=== PATIENT | female | born 1960 | race Caucasian/White ===

== ENCOUNTER 2020-04-21 13:26 | Outpatient (CLI) | payer OTHER, SELFPAY ==
--- NOTE | ~2020-04-21 | US_ITS ---
EXAMINATION: US breast LT complete HISTORY: Six-month follow-up for probably benign left breast mass TECHNIQUE: Limited left breast ultrasound is performed. COMPARISON: 08/28/2019, 08/14/2018 FINDINGS: There is a 6 mm x 4 mm oval, circumscribed, parallel, hypoechoic mass with central vascular ity at the 3:00 location 8 cm from the nipple which is not significantly changed since the August 26 comparison. There is a 4 mm x 2 mm oval, circumscribed, parallel, hypoechoic mass with no posterio r features or internal vascularity at 4:00 location 4 cm from the nipple. A 2 mm round cyst is noted at the 10:00 location 3 cm from the nipple. IMPRESSION: Left breast masses without significant change since 2018, consistent with benign findings. Routine sc reening mammography is recommended. BI-RADS Category 2: Benign finding(s). Reviewed, dictated and finalized at location A. IMPRESSION: Left breast masses without significant change since 2018, consistent with benig n findings. Routine screening mammography is recommended. BI-RADS Category 2: Benign finding(s).
== END 2020-04-21 13:27 | disposition home or self-care (01) ==
PROVIDERS: PCP Family Medicine; Visit Provider Obstetrics & Gynecology
DX: R92.8 Other abnormal and inconclusive findings on diagnostic imaging of breast (principal)
CPT/HCPCS: 76641

== ENCOUNTER 2021-07-09 02:31 | Day surgery (SDC) | payer OTHER, SELFPAY ==
[2021-06-30 13:57] VITALS: BMI 32.0
--- NOTE | 2021-07-08 14:53 | PM.HPGS ---
History of Present Illness History of Present Illness Consent: Risks, benefits, and alternatives have been discussed and questions answered. Patient agrees to proceed with procedure. Chief complaint: neoplasm screening Z12.11 Narrative: Asya Lundy is a 60 year old female referred for colon cancder screening Review of Systems Review of Systems: All systems reviewed & are unremarkable except as noted in HPI and below PMFSH Past Medical History Medical History Anxiety History of thyroid nodule s/p - left thyroidectomy 07/2017 Restless leg syndrome stable without any medications Seasonal allergies Surgical History Surgical History History of partial thyroidectomy 07/2017 - excision of thyroid mass - benign Hx of tonsillectomy Family History Family History Father Cerebrovascular accident Mother Stomach cancer Social History Social History Smoking status: Never smoker Second hand tobacco smoke exposure: No Alcohol intake: current Drinks per week: 1 Alcohol use details: consumes 1 glass of wine socially Substance use: never Substance use type: does not use Living arrangements: with family Gender identity (if verbalized by the patient): Female Spiritual care concerns: No Meds Home Medications and Allergies Home Medications Medication Instructions Recorded Confirmed Type carbamazepine 200 mg 200 mg PO DAILY #90 tablet 06/03/21 06/30/21 Rx tablet,extended release,12 hr cholecalciferol (vitamin D3) 1,250 1,250 mcg PO WEEKLY #12 cap 06/09/21 06/30/21 Rx mcg (50,000 unit) capsule Allergies Allergy/AdvReac Type Severity Reaction Status Date / Time No Known Allergies Allergy Verified 07/09/21 06:19 Exam Resp: Auscultation: clear to auscultation bilaterally Cardio: Rate: regular rate Rhythm: regular rhythm GI: GI Palp: Yes Soft to palpation and No Tenderness to palpation present (GI) Assessment and Plan Assessment and plan (1) Colon cancer screening: Code(s): Z12.11 - Encounter for screening for malignant neoplasm of colon Status: Acute Assessment and Plan: Colonoscopy with possible biopsy or polypectomy or cautery or injection of substances.
[2021-07-09 06:21] VITALS: BP 123/72; PULSE 87; RESP 18; TEMP 36.3; O2SAT 97
[2021-07-09] MEDS: LACTATED RINGERS 1,000 ML 150 ML IV CONT (06:33)
--- NOTE | 2021-07-09 07:18 | WPDANESEPPF ---
Anes - Initial Pre Proc Eval Procedure: Operation Date: 07/09/21 07:30 Proposed Procedures p Screening Colonoscopy - Shakeel Valero MD Date/Time: 07/09/21 07:18 Surgeon: Shakeel Valero MD Pre Op Diagnosis: neoplasm screening Z12.11 Patient Data Age: 60 Gender: F Height: 1.68 m Weight: 89.4 kg Last Vital Signs Temp 97.4 F L 07/09/21 06:21 Pulse 87 07/09/21 06:21 Resp 18 07/09/21 06:21 BP 123/72 07/09/21 06:21 Pulse Ox 97 07/09/21 06:21 Allergies Allergy/AdvReac Type Severity Reaction Status Date / Time No Known Allergies Allergy Verified 07/09/21 06:19 Home Medications Medication Instructions Recorded Confirmed Type carbamazepine 200 mg 200 mg PO DAILY #90 tablet 06/03/21 06/30/21 Rx tablet,extended release,12 hr cholecalciferol (vitamin D3) 1,250 1,250 mcg PO WEEKLY #12 cap 06/09/21 06/30/21 Rx mcg (50,000 unit) capsule Patient hx anesthesia problems: none Family hx anesthesia problems: none PMFSH Past Medical History Medical History Anxiety History of thyroid nodule s/p - left thyroidectomy 07/2017 Restless leg syndrome stable without any medications Seasonal allergies Surgical History Surgical History History of partial thyroidectomy 07/2017 - excision of thyroid mass - benign Hx of tonsillectomy Family History Family History Father Cerebrovascular accident Mother Stomach cancer Social History Social History Smoking status: Never smoker Second hand tobacco smoke exposure: No Alcohol intake: current Drinks per week: 1 Alcohol use details: consumes 1 glass of wine socially Substance use: never Substance use type: does not use Living arrangements: with family Gender identity (if verbalized by the patient): Female Spiritual care concerns: No Anes - Eval Final PreProcedure Day of Procedure 07/09/21 07:18 Patient weight: obese Heart: regular rate and rhythm Lungs: clear to auscultation Airway: Mallampati scale class II Neurological: alert and oriented Last oral intake: >/= 8 hours ASA classification: II Emergent: no Anesthetic plan: proceed Anesthesia type and monitoring: general GIVS and standard monitoring Informed Consent: The patient's anesthetic plan and its attendant risks and benefits were discussed with the patient/family/POA. Questions were solicited and answers provided to the satisfaction of the patient/family/POA.
[2021-07-09 07:55] VITALS: BP 112/67; PULSE 71; RESP 22; O2SAT 100
[2021-07-09 08:10] VITALS: BP 127/76; PULSE 69; RESP 21; O2SAT 100
[2021-07-09 08:15] VITALS: BP 119/80; PULSE 72; RESP 14; O2SAT 99
== END 2021-07-09 08:39 | disposition home or self-care (01) ==
PROVIDERS: PCP Family Medicine; Visit Provider Internal Medicine Gastroenterology
PROC: 0DJD8ZZ Inspection of Lower Intestinal Tract, Via Natural or Artificial Opening Endoscopic (ICD-10-PCS; CPT 45378; principal; 2021-07-09 07:30)
DX: Z12.11 Encounter for screening for malignant neoplasm of colon (principal); K57.30 Diverticulosis of large intestine without perforation or abscess without bleeding; E89.0 Postprocedural hypothyroidism; G25.81 Restless legs syndrome
CPT/HCPCS: 45378; J2704; J7120

== ENCOUNTER 2021-09-17 17:32 | Outpatient (CLI) | payer OTHER, SELFPAY ==
--- NOTE | ~2021-09-17 | MM_ITS ---
EXAMINATION: MM screening matt BI w enoc HISTORY: Screening mammogram TECHNIQUE: Craniocaudal and mediolateral oblique 3-D tomosynthesis images were obtained and synthetic 2-D images were generated. CAD analysis was submitted and interpreted. COMPARISON: 04/21/2020 left complete breast ultrasound 08/28/2019 diagnostic left mammogram and left complete breast ultrasound 08/16/2019 bilateral screening mammogram diagnostic left mammogram and complete left breast ultrasound 08/08/2018, 08/02/2017 and lateral screening mammogram examinations BREAST PARENCHYMAL COMPOSITION: There are scattered areas of fibroglandular density. FINDINGS: There is no evidence of suspicious mass, calcification, or architectural distortion to sugg est malignancy in either breast. There has been no suspicious interval change. IMPRESSION: 1. No mammographic evidence of malignancy. 2. Recommend routine screening mammography in one year. BI-RADS Category 2: Benign finding(s). Reviewed, dictated and finalized at location A. 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
== END 2021-09-17 17:33 | disposition home or self-care (01) ==
LOC: ANHIMG 17:33
PROVIDERS: PCP Family Medicine; Visit Provider Obstetrics & Gynecology
DX: Z12.31 Encounter for screening mammogram for malignant neoplasm of breast (principal)
CPT/HCPCS: 77063; 77067

== ENCOUNTER 2022-07-15 07:51 | Outpatient (CLI) | payer OTHER, SELFPAY ==
--- NOTE | ~2022-07-15 | MR_ITS ---
EXAMINATION: MR knee RT wo con DATE: 07/15/2022 08:43 INDICATION: Right knee pain TECHNIQUE: Magnetic resonance imaging (MRI) of the right knee was performed without intravenous contr ast. Sequences included coronal PD-weighted FSE, coronal PD-weighted FS FSE, sagittal T2-weighted FS E, sagittal PD-weighted FS FSE and axial PD weighted fat saturated FSE. COMPARISON: None. FINDINGS: Medial compartment: Complex tear at the posterior horn of the medial meniscus which includes both a longitudinal horizont al component extending to the superior articular surface as well as a small radial component involvin g the inner third of the posterior horn. Articular cartilage is normal. Lateral compartment: Lateral meniscus is normal. Articular cartilage is normal. Patellofemoral compartment: Partial-thickness patellar cartilage loss centered along the apical ridge but generally smooth chondr al surface. Small region of chondral swelling and shallow chondral fissuring at the lateral margin of the lateral patellar facet. Chondral ulceration and deep fissuring with mild subarticular cystlike c hange at the central aspect of the trochlear groove. Ligaments and tendons: Anterior and posterior cruciate ligaments are normal. The medial collateral ligament and fibular citlali ateral ligament complex are normal. The extensor mechanism is normal. The visualized medial and later al hamstring tendons as well as the iliotibial band are normal. Fluid: Physiologic amount of fluid in the joint space. No loose osteochondral bodies identified. Small Romeo 's cyst. Osseous/other: 12 x 9 x 7 mm globular T2 hyperintense lesion with cluster of grape like appearance at the lateral fe moral condyle with appearance consistent with and statistically most likely to represent an enchondro ma. Otherwise normal marrow signal. No fracture or pathologic marrow replacing process. There is pablo a of the superficial suprapatellar fat pad which can be seen with fat pad impingement syndrome. IMPRESSION: 1. Complex tear at the posterior horn of the medial meniscus. 2. 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 3. Edema at the superficial suprapatellar fat pad which can be seen with fat pad impingement syndrome . 4. 12 mm T2 hyperintense lesion at the lateral femoral condyle most likely representing an enchondrom a but would recommend correlation with plain radiographs. 5. Small Romeo's cyst. Reviewed, dictated and finalized at location A. IMPRESSION: 1. Complex tear at the posterior horn of the medial meniscus. 2. Mild patellofemoral osteoarthritis with moderate grade patellar and high-gra de trochlear chondromalacia. 3. Edema at the superficial suprapatellar fat pad which can be seen with fat pa d impingement syndrome. 4. 12 mm T2 hyperintense lesion at the lateral femoral condyle most likely repr esenting an enchondroma but would recommend correlation with plain radiographs. 5. Small Romeo's cyst.
== END 2022-07-15 07:52 | disposition home or self-care (01) ==
PROVIDERS: PCP Family Medicine; Visit Provider Nurse Practitioner
DX: M71.21 Synovial cyst of popliteal space [Baker], right knee (principal); M17.11 Unilateral primary osteoarthritis, right knee; S83.231A Complex tear of medial meniscus, current injury, right knee, initial encounter; X58.XXXA Exposure to other specified factors, initial encounter
CPT/HCPCS: 73721

== ENCOUNTER 2022-08-20 01:03 | Day surgery (SDC) | payer OTHER, SELFPAY ==
[2022-08-10 09:41] VITALS: BMI 32.3
--- NOTE | 2022-08-10 09:50 | PC.NURSE ---
Report to the Outpatient Waiting Room, entrance under the green pavilion located off [facility], at time __07:00AM__ on date __08/20/22 . OR Time: __09:00AM . Time changes happen often and if your time is changed the preop area will call you the afternoon before. - You and your visitor will be asked to self-screen and do not enter if you have any COVID symptoms. - Only one visitor and NO children visitors are allowed at this time. - The patient visitor is requested to leave or wait in car when not with patient due to restrictions. - A mask is required within the hospital. Patients may have clear liquids (water, carbonated beverages, clear teas, apple juice) until 3 hours prior to surgery with a maximum of 20 ounces. - No food from midnight until time of surgery -NOTHING TO DRINK AFTER 6:00AM Take the following medications with a SIP of water the morning of surgery: CARBAMAZEPINE, SERTRALINE Medications to discontinue per physician VITAMIN D Date to take last mssd____[id number] Please no make-up, nail italian, hairspray, perfume, deodorant, or body powder the day of surgery. No jewelry (including any body piercings) or valuables the day of surgery, leave them at home. Please take a shower or bath the night before, or the morning of, surgery with an antibacterial soap. Wear comfortable, loose fitting clothing. - Jewelry must be removed prior to entering the operating room. Rings and piercings that are not removed may be cut off. - The hospital will not accept responsibility for valuables. - Please leave all valuables, including medications, at home the day of surgery. If you are going home after surgery, a licensed pick up driver must drive you home. - NO public transportation without another adult. - We recommend that an adult stay with you for 24 hours following discharge. - We also recommend that you do not drive, make important decision, drink alcoholic beverages, or take any drugs that were not prescribed by your health care provider for at least 24 hours after your discharge time. Follow any additional instructions given to you from your surgeon. If you or anyone in your household have experienced Covid symptoms in the past week, please notify your surgeon or the nurse liaison at the phone number below for possible testing. Telephone instructions given to __PATIENT___and asked if any additional questions and then verbalized understanding. Patient advised to call surgeon office or pre surgery nurse liaison [phone] if any additional questions.
[2022-08-20] VITALS (12 sets, daily range): BP systolic 115–147; BP diastolic 60–86; PULSE 80–102; RESP 13–16; TEMP 36.1–37; O2SAT 95–98
--- NOTE | 2022-08-20 07:15 | WPDHPUPDATE1 ---
History and Physical Update Update Date/Time: 08/20/22 07:15 History and Physical has been reviewed, including an updated exam of the patient. There are NO changes in the patient's condition. Risks, benefits, and alternatives have been discussed and questions answered. Patient agrees to proceed with procedure.
[2022-08-20] MEDS: LACTATED RINGERS 1,000 ML 30 ML IV CONT (08:00)
[2022-08-20] MEDS: ACETAMINOPHEN 500 MG TABLET 1000 MG PO (08:06)
[2022-08-20] MEDS: CELECOXIB 200 MG CAPSULE PO (08:06)
--- NOTE | 2022-08-20 08:38 | WPDANESEPPF ---
Anes - Initial Pre Proc Eval Procedure: Operation Date: 08/20/22 09:00 Proposed Procedures p Right Knee Arthroscopy - Jose Michaels MD Date/Time: 08/20/22 08:38 Surgeon: Jose Michaesl MD Pre Op Diagnosis: Rt Medial Meniscus Tear Patient Data Age: 61 Gender: F Height: 1.68 m Weight: 92.8 kg Last Vital Signs Temp 36.1 C L 08/20/22 07:19 Pulse 95 08/20/22 07:19 Resp 16 08/20/22 07:19 BP 128/82 08/20/22 07:19 Pulse Ox 98 08/20/22 07:19 O2 Del Method Room Air 08/20/22 07:19 Allergies Allergy/AdvReac Type Severity Reaction Status Date / Time No Known Allergies Allergy Verified 08/20/22 07:37 Home Medications Medication Instructions Recorded Confirmed Type carbamazepine 200 mg 200 mg PO DAILY #90 tabs 03/29/22 08/20/22 Rx tablet,extended release,12 hr cyclobenzaprine 10 mg tablet 10 mg PO .at bedtime #30 tabs 07/02/22 08/20/22 Rx naproxen 500 mg tablet 500 mg PO BID PRN pain #60 tabs 07/02/22 08/10/22 Rx sertraline 50 mg tablet (Zoloft) 50 mg PO DAILY #90 tabs 07/13/22 08/20/22 Rx cholecalciferol (vitamin D3) 50 50 mcg PO DAILY 08/10/22 08/20/22 History mcg (2,000 unit) tablet (Vitamin D3) chlorhexidine gluconate 4 % 1 applic topical ONCE #237 mL 08/13/22 08/20/22 Rx topical liquid (Hibiclens) Patient hx anesthesia problems: none Family hx anesthesia problems: none Results Review: All pre-operative results and documents have been reviewed as part of the pre-operative evaluation. [facility] Past Medical History Medical History Anxiety Dyslipidemia History of thyroid nodule s/p - left thyroidectomy 07/2017 Restless leg syndrome Seasonal allergies Vitamin D deficiency Surgical History Surgical History History of partial thyroidectomy 07/2017 - excision of thyroid mass - benign Hx of tonsillectomy (~1965) Family History Family History Father Cerebrovascular accident Mother Stomach cancer Social History Social History Smoking status: Never smoker Second hand tobacco smoke exposure: No Alcohol intake: never Drinks per week: 1 Alcohol use details: consumes 1 glass of wine socially Substance use: never Substance use type: does not use Living arrangements: with family Gender identity (if verbalized by the patient): Female Spiritual care concerns: No Anes - Eval Final PreProcedure Day of Procedure 08/20/22 08:38 Patient weight: obese Heart: regular rate and rhythm Lungs: clear to auscultation Airway: Mallampati scale class II Neurological: alert and oriented Last oral intake: >/= 8 hours ASA classification: III Emergent: no Anesthetic plan: proceed Anesthesia type and monitoring: general LMA and standard monitoring Results Review: All pre-operative results and documents have been reviewed as part of the pre-operative evaluation. Informed Consent: The patient's anesthetic plan and its attendant risks and benefits were discussed with the patient/family/POA. Questions were solicited and answers provided to the satisfaction of the patient/family/POA.
[2022-08-20] MEDS: ceFAZolin 2 GM/D5W 50 ML 2 GM/50 ML BAG IVPB (08:54)
[2022-08-20] MEDS: BUPIVACAINE HCL 0.5% PF 30 ML VIAL INFILTRATE (09:32)
--- NOTE | 2022-08-20 10:49 | W.PM.PROC2 ---
Procedure Note - Detailed Date of Procedure 08/20/22 Pre-op Diagnosis Rt Medial Meniscus Tear Post-op Diagnosis Same Procedure Performed RIGHT KNEE SCOPE Surgeon Jose Michaels MD Anesthesia General Description of Procedure PATIENT WAS TAKEN TO THE OR. THE RIGHT LEG WAS PREPPED AND DRAPED STERILE. TROCARS WERE PLACED IN THE USUAL FASHION. CAMERA WAS INTRODUCED. THERE WAS CHONDROMALACIA TO THE PATELLA FEMORAL JOINT. THERE WAS A LOT OF SYNOVITIS IN ALL COMPARTMENTS. THE MEDIAL COMPARTMENT SHOWED CHONDROMALACIA TO THE MEDIAL FEMORAL CONDYLE. A SHAVER WAS USED TO PREFORM A CHONDROPLASTY. THERE WAS A COMPLEX MEDIAL MENISCUS TEAR. THE TEAR WAS RESECTED WITH A BITER AND A SHAVER DOWN TO A SMOOTH BASE. ABOUT 30% OF THE MENISCUS WAS REMOVED. THE ACL WAS INTACT. THE LATERAL MENISCUS WAS NOT TORN. THE LAT COMPARTMENT HAD MINIMAL CHONDROMALACIA. A SYNOVECTOMY WAS PREFORMED. THE PATELLO FEMORAL JOINT UNDERWENT CHONDROPLASTY. THERE WAS GRADE 2 AND GRADE 3 CHONDROMALACIA IN PART OF THE TROCHLEA AND PART OF THE PATELLA. SYNOVECTOMY WAS PREFORMED IN THE SUPERIOR MEDIAL COMPARTMENT. THE WOUNDS WERE APPROXIMATED WITH 4.0 NYLON. STERILE DRESSING WAS APPLIED. PATIENT WAS EXTUBATED. Estimated Blood Loss -5.0 Complications No immediate complications Condition Stable Disposition PACU
--- NOTE | 2022-08-20 12:22 | SUR.PHASEII ---
PATIENT STILL QUITE DROWSY. 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 WILL TRANSFER TO RECLINER WHEN SLIGHTLY MORE AWAKE.
[2022-08-20] MEDS: ONDANSETRON INJ 4 MG/2 ML VIAL IV PUSH (13:00)
--- NOTE | 2022-08-20 13:16 | SUR.PHASEII ---
ATTEMPTED TO ASSIST PATIENT TO RECLINER BUT STILL TOO SLEEPY.
[2022-08-20] MEDS: SCOPOLAMINE 1.5 MG PATCH TRANSDERM (15:14)
[2022-08-20] MEDS: ONDANSETRON HCL ODT 4 MG TABLET PO (15:14)
--- NOTE | 2022-08-20 15:21 | SUR.PHASEII ---
1510 DR. SUMMERS CALLED RE: PATIENT'S NAUSEA/VOMITING. ORDERED SCOPALAMINE PATCH AND ZOFRAN ODT SUBLINGUAL.
== END 2022-08-20 15:22 | disposition home or self-care (01) ==
PROVIDERS: PCP Family Medicine; Visit Provider Orthopaedic Surgery
PROC: (CPT 29870; principal; 2022-08-20 09:00)
DX: S83.231A Complex tear of medial meniscus, current injury, right knee, initial encounter (principal); X50.9XXA Other and unspecified overexertion or strenuous movements or postures, initial encounter; M22.41 Chondromalacia patellae, right knee; M65.861 Other synovitis and tenosynovitis, right lower leg; F41.9 Anxiety disorder, unspecified; E89.0 Postprocedural hypothyroidism; E55.9 Vitamin D deficiency, unspecified; G25.81 Restless legs syndrome
CPT/HCPCS: 29881; A9270; J0690; J1100; J1885; J2250; J2405; J2704; J3010; J7120

== ENCOUNTER 2022-12-02 17:04 | Outpatient (CLI) | payer OTHER, SELFPAY ==
--- NOTE | ~2022-12-02 | MM_ITS ---
EXAMINATION: MM screening matt BI w enoc HISTORY: Screening TECHNIQUE: Craniocaudal and mediolateral oblique 3-D tomosynthesis images were obtained and synthetic 2-D images were generated. CAD analysis was submitted and interpreted. COMPARISON: Comparison to multiple prior studies sequentially, with oldest reviewed study dated 08/02. BREAST PARENCHYMAL COMPOSITION: There are scattered areas of fibroglandular density. FINDINGS: There is no evidence of suspicious mass, calcification, or architectural distortion to sugg est malignancy in either breast. There has been no suspicious interval change. IMPRESSION: 1. No mammographic evidence of malignancy. 2. Recommend routine screening mammography in one year. BI-RADS Category 1: Negative Reviewed, dictated and finalized at location A. 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
== END 2022-12-02 17:05 | disposition home or self-care (01) ==
PROVIDERS: PCP Family Medicine; Visit Provider Obstetrics & Gynecology
DX: Z12.31 Encounter for screening mammogram for malignant neoplasm of breast (principal)
CPT/HCPCS: 77063; 77067

== ENCOUNTER 2022-12-20 08:00 | Outpatient (RCR) | payer OTHER, SELFPAY ==
--- NOTE | 2022-10-05 15:20 | PTOPEVAL1 ---
Assessment and note entered by Candice Garcia DPT Evaluation Information Assessment Status Evaluation Subjective Information Pt had R knee scope 08/20/22 for a meniscus tear. Had fluid drained off her knee and cortisone shots 2 weeks ago. Reports difficulty straightening her knee. Has been doing exercises from Dr. Michaels. Highest pain 8/10 and lowest 1/10. Pain increases with walking but sometimes randomly. Pain decreases with pain meds and ice. Pt sits at work and reports minimal limitations. Is not picking up her grandchildren currently but was able to previously. Reports fear going down stairs. Has 2 levels and a basement at home. Would normally be exercising and doing yard work but is not currently. Returns to MD in December. Reported Pain Level Pain Score 3: Self Report Assessment PT Clinical Summary The patient is presenting to skilled therapy s/p R knee arthroscopy on 08/20/22. She presents with limitations in knee flexion and extension, decreased strength, and gait impairments which are contributing to her pain and difficulty performing her typical activities. She will benefit from therapy to address these impairments in order to reduce pain and return to prior level of function. Plan of Care Interventions Electrical Stimulation,Gait Training,Hot Pack/Cold Pack,Manual Therapy,Neuro Re-education,Patient/ Caregiver Education,Therapeutic Activities, Therapeutic Exercise,Self-Care/Home Management PT Services Indicated Yes Treatment Frequency and 2 times a week for 4 weeks Duration These treatments will address the objective and functional deficits as defined above. The patient will be advanced safely and appropriately in order for the patient to progress towards his/her prior level of function. Additional exercises will be introduced and as well as a comprehensive home exercise program upon discharge, if needed, ?to ensure carryover of functional gains achieved in the clinic. This treatment plan has been reviewed and agreement upon by the patient.
--- NOTE | 2022-10-28 15:38 | PTOPPROG ---
Assessment and note entered by Candice Garcia DPT Evaluation Information Assessment Status Progress Subjective Information Reports improvements since starting therapy. Highest pain 6/10 and lowest 2-3/10. Has been able to bend it better and made it down a full flight of stairs. Returns to MD in December. Feels continued stiffness and some limitations with walking and bending over, other activities that require knee movement. Assessment PT Clinical Summary The patient has made some progress in therapy and reports overall decreased pain and improved function. She demonstrates improved range of motion, strength, 5 time sit to stand test, 2 minute walk distance, and stair navigation. She continues to lack full strength and range of motion and will highly benefit from continued therapy to further address her impairments and return to prior level of function. Plan of Care Interventions Electrical Stimulation,Gait Training,Hot Pack/Cold Pack,Manual Therapy,Neuro Re-education,Patient/ Caregiver Education,Therapeutic Activities, Therapeutic Exercise,Self-Care/Home Management PT Services Indicated Yes Treatment Frequency and 2 times a week for 4 weeks Duration These treatments will address the objective and functional deficits as defined above. The patient will be advanced safely and appropriately in order for the patient to progress towards his/her prior level of function. Additional exercises will be introduced and as well as a comprehensive home exercise program upon discharge, if needed, ?to ensure carryover of functional gains achieved in the clinic. This treatment plan has been reviewed and agreement upon by the patient.
--- NOTE | 2022-11-25 11:55 | PTOPPROG ---
Assessment and note entered by Mike Ignacio, PT, DPT Evaluation Information Assessment Status Progress Diagnosis R knee scope Subjective Information Pt states her knee does not really hurt anymore. She states she has been really focusing on her walking. She states her heel pain and Achilles pain has failed up making this more difficult. Assessment PT Clinical Summary Asya presents to therapy today for her progress report following 13 visits of skilled therapy to treat her R knee scope. She has improved her active and passive knee ROM but continues to lack terminal knee extension ROM. Secondary to this, she continues to have moderate deviations during ambulation with decreased walking tolerance. She also is still lacking terminal quad strength during a long arc quad. She has a palpable increase in soft tissue density in her posterior knee fossa that is possibly limiting her as well. She will highly benefit from continued therapy to further address her impairments and return to prior level of function. Plan of Care Interventions Electrical Stimulation,Gait Training,Hot Pack/Cold Pack,Manual Therapy,Neuro Re-education,Patient/ Caregiver Educati,Therapeutic Activities, Therapeutic Exercise,Self-Care/Home Management PT Services Indicated Yes Treatment Frequency and 1x/wk for 4 wks Duration These treatments will address the objective and functional deficits as defined above. The patient will be advanced safely and appropriately in order for the patient to progress towards his/her prior level of function. Additional exercises will be introduced and as well as a comprehensive home exercise program upon discharge, if needed, ?to ensure carryover of functional gains achieved in the clinic. This treatment plan has been reviewed and agreement upon by the patient.
--- NOTE | 2022-12-20 09:55 | PTOPPROG ---
Assessment and note entered by Mike Ignacio, PT, DPT Evaluation Information Assessment Status Progress Diagnosis R knee scope Subjective Information Pt states she feels like things are going pretty well. She feels like her knee is mostly straight. She reports no limitations with very little pain. Assessment PT Clinical Summary Asya presents to therapy today for her progress report following 17 visits of skilled therapy to treat her R knee scope. Today she continues to have decreased terminal knee extension actively and passively, she is lacking - 6 deg and -2 deg respectively. She continues to use her glutes to compensate for her quads during LE exercise, reinforcement was given again to limit these substitutions. She continues to ambulate with lack of terminal knee extension. Her HEP was progress and consolidated and she was instructed to continue with these exercises until her follow up with her referring provider. She will follow up with the clinic after her appointment with her provider in 2-3 weeks. Plan of Care Interventions Electrical Stimulation,Gait Training,Hot Pack/Cold Pack,Manual Therapy,Neuro Re-education,Patient/ Caregiver Educati,Therapeutic Activities, Therapeutic Exercise,Self-Care/Home Management PT Services Indicated Yes Treatment Frequency and in 1 month Duration These treatments will address the objective and functional deficits as defined above. The patient will be advanced safely and appropriately in order for the patient to progress towards his/her prior level of function. Additional exercises will be introduced and as well as a comprehensive home exercise program upon discharge, if needed, ?to ensure carryover of functional gains achieved in the clinic. This treatment plan has been reviewed and agreement upon by the patient.
--- NOTE | 2022-12-31 13:07 | PCPTNOTE ---
This treatment is being continued on visit number [id number]. Please see documentation on both accounts to view progress. Completed interventions, outcomes, and problems have been marked as Inactive to facilitate the copying of the Care plan routine for recurring accounts.
== END 2022-12-30 09:31 | disposition home or self-care (01) ==
LOC: ANHGOSHPT 08:00
PROVIDERS: PCP Family Medicine; Visit Provider Orthopaedic Surgery
DX: Z48.89 Encounter for other specified surgical aftercare (principal); M17.11 Unilateral primary osteoarthritis, right knee
CPT/HCPCS: 97110; 97112; 97140; 97161; 97530

== ENCOUNTER 2023-01-07 08:00 | Outpatient (RCR) | payer OTHER, SELFPAY ==
--- NOTE | 2022-12-31 13:07 | PCPTNOTE ---
The treatment documented on this account is a continuation of the treatment documented on visit number [id number]. Please see documentation on both accounts to view progress. The Plan of Care has been transitioned and updated within the new V#. I have addressed and agree with the discipline specific Problems, Interventions, and Goals for the current certification period. Completed interventions, outcomes, and problems have been marked as Inactive to facilitate the copying of the Care plan routine for recurring accounts.
--- NOTE | 2023-01-07 08:50 | PTOPDC ---
Assessment and note entered by Mike Ignacio, PT, DPT Evaluation Information Assessment Status Discharge Diagnosis R knee scope Onset aug 2022 Subjective Information Pt states she is still doing about the same. She followed up with her orthopedic doctor who she reports, states her pain is d/t arthritis and residual swelling. She is scheduled for a cortisone injection. She has been riding her bike 15 mins and has been diligent with her exercises when her pain is manageable. Reported Pain Level Pain Score 2: Self Report Assessment PT Clinical Summary Asya presents to therapy today for her progress report following 17 visits of skilled therapy and a 3 month long participation in her HEP. Today she demonstrates no improvements in her ROM or strength compared to her last visit. She states she is still limited by pain. She will be discharged at this time d/t poor therapy progress with instructions to follow up with her referring provider to discuss other treatment options. Plan of Care PT Services Indicated No Treatment Frequency and discharge Duration
== END 2023-01-07 09:43 | disposition home or self-care (01) ==
LOC: ANHGOSHPT 08:00
PROVIDERS: PCP Family Medicine; Visit Provider Orthopaedic Surgery
DX: M17.11 Unilateral primary osteoarthritis, right knee (principal)
CPT/HCPCS: 97110; 97530

== ENCOUNTER 2023-08-12 16:08 | Emergency (ER) | payer OTHER, SELFPAY ==
[2023-08-12 16:16] VITALS: BP 139/84; PULSE 75; RESP 16; TEMP 36.9; O2SAT 96
--- NOTE | 2023-08-12 16:50 | ED.URI ---
HPI - URI/Sore Throat General Chief Complaint: Upper Respiratory Infection Stated Complaint: CONGESTION Time Seen by Provider: 08/12/23 16:33 Source: patient and RN notes reviewed Mode of arrival: ambulatory Limitations: no limitations History of Present Illness HPI Narrative: Patient presents today with a 10 day history of hoarse cough, intermittent shortness of breath with exertion. She has also developed hoarse voice as well as some nasal congestion and sinus pressure today. She has been taking Tylenol cold and flu without relief. Denies history of asthma or COPD. She is a nonsmoker. Reports multiple sick contacts with her grandkids. Related Data Home Medications Medication Instructions Recorded Confirmed cholecalciferol (vitamin D3) 50 50 mcg PO DAILY 08/10/22 08/12/23 mcg (2,000 unit) tablet (Vitamin D3) Allergies Allergy/AdvReac Type Severity Reaction Status Date / Time No Known Allergies Allergy Verified 08/12/23 16:20 Review of Systems Review of Systems: CONSTITUTIONAL: Denies body aches, fever, chills, or sweats. EYES: Denies visual changes, redness, or discharge. ENT: Denies rhinorrhea, sore throat, or otalgia.+ hoarse voice, nasal congestion CARDIOVASCULAR: Denies chest pain, palpitations, or edema. RESPIRATORY: + cough, shortness of GASTROINTESTINAL: Denies abdominal pain, nausea, vomiting, or diarrhea. GENITOURINARY: Denies dysuria or hematuria. SKIN: Denies rash, itching, or wounds. MUSCULOSKELETAL: Denies back pain, joint pain, or myalgia. NEUROLOGIC: Denies headache, numbness, tingling, or weakness. PSYCH: Denies depression or anxiety. [facility] Past Medical History Medical History Anxiety Dyslipidemia History of thyroid nodule s/p - left thyroidectomy 07/2017 Restless leg syndrome Seasonal allergies Vitamin D deficiency Surgical History Surgical History History of partial thyroidectomy 07/2017 - excision of thyroid mass - benign Hx of tonsillectomy (~1965) Family History Family History Father Cerebrovascular accident Mother Stomach cancer Other Depression Social History Social History Smoking status: Never smoker Second hand tobacco smoke exposure: No Alcohol intake: never Drinks per week: 1 Alcohol use details: consumes 1 glass of wine socially Substance use: never Substance use type: does not use Lack of Transportation: No Lack of Food: Never True Current Housing: I Have Housing Concerned About Future Housing: No Difficulty Paying Gas/Electric Bills: No Difficulty Paying for Meds: No Currently Unemployed: No Education: High School Diploma/GED Living arrangements: with family Occupation/Education: occupation Gender identity (if verbalized by the patient): Female Spiritual care concerns: No Comments At time of signature, I have reviewed and agree with nursing past medical, surgical, social and family history unless otherwise noted. Please see nursing chart for further information. There is no relevant family history pertinent to the presenting complaint Exam Narrative: GENERAL: Well-appearing, well-nourished, and in no acute distress. HEAD: Normocephalic, atraumatic. EYES: EOMI. No redness or drainage. Conjunctivae normal. ENT: Mucous membranes pink and moist. TMs normal bilaterally. Throat normal. Uvula midline.+ hoarse voice, mild congestion NECK: Normal AROM. Supple. No lymphadenopathy. CHEST: No respiratory distress. Inspiratory and expiratory wheeze in the left upper lobe, otherwise clear. HEART: Regular rate and rhythm. No murmur appreciated. Normal peripheral pulses. EXTREMITIES: Normal range of motion. No edema. SKIN: Warm, dry, no rash. Capillary refill normal
== END 2023-08-12 16:57 | disposition home or self-care (01) ==
PROVIDERS: Emergency Provider Nurse Practitioner; PCP Family Medicine
DX: J40 Bronchitis, not specified as acute or chronic (principal); J06.9 Acute upper respiratory infection, unspecified; E78.5 Hyperlipidemia, unspecified
CPT/HCPCS: 99213; G0463

== ENCOUNTER 2023-08-20 13:31 | Emergency (ER) | payer OTHER, SELFPAY ==
--- NOTE | ~2023-08-20 | XR_ITS ---
EXAMINATION: XR chest 2V DATE: 08/20/2023 14:18 INDICATION: Nonproductive cough TECHNIQUE: frontal and lateral views of the chest were obtained. COMPARISON: None FINDINGS: Curvilinear discoid atelectasis anterior lung base on the lateral projection, likely the lingula. No other airspace opacities, pulmonary edema, pleural effusion or pneumothorax. The cardiomediastinal si lhouette is normal. Mild thoracic spondylosis. IMPRESSION: 1. Mild lingular atelectasis. Reviewed, dictated and finalized at location A.
[2023-08-20 13:41] VITALS: BP 128/62; PULSE 102; RESP 20; TEMP 36.3; O2SAT 97
--- NOTE | 2023-08-20 13:53 | ED.URI ---
HPI - URI/Sore Throat General Chief Complaint: Upper Respiratory Infection Stated Complaint: Respiratory Infection Time Seen by Provider: 08/20/23 13:55 Source: patient, RN notes reviewed and old records reviewed Mode of arrival: ambulatory Limitations: no limitations History of Present Illness HPI Narrative: 62-year-old female returns to the [facility] after completing prednisone and doxycycline for an upper respiratory infection. Seen on 08/12/23, per record had symptoms for 10 days. States that she is not better still having a cough and sinus pressure. Has not taken any exno-rqr-ekrropt products just finished her steroids, cough medicine and antibiotic Has not followed up with PCM Onset (ago): day(s) (18) Treatments prior to arrival: antibiotics Related Data Home Medications Medication Instructions Recorded Confirmed cholecalciferol (vitamin D3) 50 50 mcg PO DAILY 08/10/22 08/20/23 mcg (2,000 unit) tablet (Vitamin D3) Allergies Allergy/AdvReac Type Severity Reaction Status Date / Time No Known Allergies Allergy Verified 08/12/23 16:20 Review of Systems Review of Systems: All systems reviewed & are unremarkable except as noted in HPI and below Constitutional: Constitutional: Reports no additional constitutional complaints Eyes: Eyes: Reports no additional eye complaints ENT: Reports as per HPI Cardiovascular: Cardiovascular: Reports no additional cardiovascular complaints, Denies chest pain and Denies dyspnea Respiratory: Respiratory: Reports as per HPI, Denies chest congestion, Reports cough and Denies dyspnea Gastrointestinal: Gastrointestinal: Reports no additional gastrointestinal complaints, Denies abdominal pain, Denies nausea and Denies vomiting Musculoskeletal: Musculoskeletal: Reports no additional musculoskeletal complaints Integumentary/Breasts: Skin/Breast: Reports system reviewed and no additional complaints, except as docu Neurologic: Reports system reviewed and no additional complaints, except as documented Psychiatric: Psychiatric: Reports no additional psychiatric complaints Allergic/Immunologic: Allergic/Immunologic: Reports no additional allergic/immunologic complaints PMFSH Past Medical History Medical History Anxiety Dyslipidemia History of thyroid nodule s/p - left thyroidectomy 07/2017 Restless leg syndrome Seasonal allergies Vitamin D deficiency Surgical History Surgical History History of partial thyroidectomy 07/2017 - excision of thyroid mass - benign Hx of tonsillectomy (~1965) Family History Family History Father Cerebrovascular accident Mother Stomach cancer Other Depression Social History Social History Smoking status: Never smoker Second hand tobacco smoke exposure: No Alcohol intake: never Drinks per week: 1 Alcohol use details: consumes 1 glass of wine socially Substance use: never Substance use type: does not use Lack of Transportation: No Lack of Food: Never True Current Housing: I Have Housing Concerned About Future Housing: No Difficulty Paying Gas/Electric Bills: No Difficulty Paying for Meds: No Currently Unemployed: No Education: High School Diploma/GED Living arrangements: with family Occupation/Education: occupation Gender identity (if verbalized by the patient): Female Spiritual care concerns: No Comments At the time of my signature, I reviewed and agree with the nursing past medical, surgical, social, and family history. There is no relevant family history pertinent to the patient complaint. Exam Const: General: cooperative, healthy appearing, comfortable, no acute distress, well developed, alert and well nourished Nutritional Appearance: well nourished Orientation
--- NOTE | 2023-08-20 14:40 | PC.NURSE ---
inspirometer sent home with patient.
== END 2023-08-20 14:37 | disposition home or self-care (01) ==
PROVIDERS: Emergency Provider Nurse Practitioner; PCP Family Medicine
DX: J40 Bronchitis, not specified as acute or chronic (principal); J98.11 Atelectasis; E78.5 Hyperlipidemia, unspecified; G25.81 Restless legs syndrome; E55.9 Vitamin D deficiency, unspecified; F41.9 Anxiety disorder, unspecified; Z90.89 Acquired absence of other organs
CPT/HCPCS: 71046; 99213; G0463

== ENCOUNTER 2023-11-05 10:14 | Emergency (ER) | payer OTHER, SELFPAY ==
--- NOTE | 2023-11-05 10:22 | ED.EYEPROB ---
HPI - Eye Problem General Chief complaint: Eye Problems Stated complaint: pink eye Time Seen by Provider: 11/05/23 10:40 Source: patient Mode of arrival: ambulatory Limitations: no limitations History of Present Illness HPI Narrative: Asya is a 62-year-old female patient presenting to the clinic today with complaints of bilateral red and irritated eyes. She reports that there has been green/yellow drainage coming from her eyes. States that her eyes were matted shut this morning. Has a gritty sensation in her eyes. No known exposure to anyone with conjunctivitis. Denies any eye pain or visual changes. Does report a runny nose and cough. Related Data Home Medications Medication Instructions Recorded Confirmed cholecalciferol (vitamin D3) 50 50 mcg PO DAILY 08/10/22 11/05/23 mcg (2,000 unit) tablet (Vitamin D3) Allergies Allergy/AdvReac Type Severity Reaction Status Date / Time No Known Allergies Allergy Verified 11/05/23 10:35 Review of Systems Review of Systems: Pertinent positives per HPI. Patient denies any fever, chills, rash, headache, visual changes, dizziness, cough, runny nose, sore throat, shortness of breath, chest pain, palpitations, nausea, vomiting, diarrhea, constipation, abdominal pain, or any urinary issues. [facility] Past Medical History Medical History Anxiety Dyslipidemia History of thyroid nodule s/p - left thyroidectomy 07/2017 Restless leg syndrome Seasonal allergies Vitamin D deficiency Surgical History Surgical History History of partial thyroidectomy 07/2017 - excision of thyroid mass - benign Hx of tonsillectomy (~1965) Family History Family History Father Cerebrovascular accident Mother Stomach cancer Other Depression Social History Social History Smoking status: Never smoker Second hand tobacco smoke exposure: No Alcohol intake: never Drinks per week: 1 Alcohol use details: consumes 1 glass of wine socially Substance use: never Substance use type: does not use Lack of Transportation: No Lack of Food: Never True Current Housing: I Have Housing Concerned About Future Housing: No Difficulty Paying Gas/Electric Bills: No Difficulty Paying for Meds: No Currently Unemployed: No Education: High School Diploma/GED Living arrangements: with family Occupation/Education: occupation Gender identity (if verbalized by the patient): Female Spiritual care concerns: No Comments At the time of my signature, I reviewed and agree with the nursing past medical, surgical, social, and family history. There is no relevant family history pertinent to the patient complaint. Exam Narrative: General: Well-developed, well nourished, in no apparent distress Head: Normocephalic, atraumatic Eyes: Pupils equally round and reactive to light bilaterally, EOM intact, bilateral sclera and conjunctive injected with yellow mucopurulent discharge and bilateral lid swelling, Ears: TMs intact and clear, ear canals clear, no drainage, grossly hearing normal. Nose: Nares patent, clear discharge, no inflammation, no sinus tenderness. Mouth: Oropharynx without lesions or masses, good dentition, MMM. Neck: Supple, trachea midline, no enlargement of anterior or posterior cervical nodes, no thyroid masses or goiter palpable. Cardio: Regular rate and rhythm, s1 and s2 normal, no murmur appreciated. Resp: Clear to auscultation bilaterally anteriorly and posteriorly, no rhonchi, rales, wheezing or rubs Course Course Emergency Course: Portions of this record may have been created with voice recognition software. Level of Care: Express Care Visit Vital Signs Vital signs: Vital signs reviewed MDM - Eye Problem
[2023-11-05 10:35] VITALS: BP 142/84; PULSE 109; RESP 16; TEMP 36.6; O2SAT 99
== END 2023-11-05 10:41 | disposition home or self-care (01) ==
PROVIDERS: Emergency Provider Nurse Practitioner Family; PCP Family Medicine
DX: H10.9 Unspecified conjunctivitis (principal); E78.5 Hyperlipidemia, unspecified; G25.81 Restless legs syndrome; E55.9 Vitamin D deficiency, unspecified; Z90.89 Acquired absence of other organs
CPT/HCPCS: 99213; G0463

== ENCOUNTER 2023-12-12 07:55 | Outpatient (CLI) | payer OTHER, SELFPAY ==
--- NOTE | ~2023-12-12 | MM_ITS ---
EXAMINATION: MM screening [facility] BI [facility] HISTORY: Screening mammogram TECHNIQUE: Craniocaudal and mediolateral oblique 3-D tomosynthesis images were obtained and synthetic 2-D images were generated. CAD analysis was submitted and interpreted. COMPARISON: 12/02/2022, 09/17/2021, 08/28/2019, 08/16/2019 BREAST PARENCHYMAL COMPOSITION: There are scattered areas of fibroglandular density. FINDINGS: No suspicious mass, calcification, or architectural distortion are identified in either coral ast to suggest malignancy. There has been no suspicious interval change. IMPRESSION: 1. No mammographic evidence of malignancy. 2. Recommend routine screening mammography in one year. BI-RADS Category 1: Negative Reviewed, dictated and finalized at location A. OGRAPHER
== END 2023-12-12 07:56 | disposition home or self-care (01) ==
LOC: ANHIMG 07:57
PROVIDERS: PCP Family Medicine; Visit Provider Obstetrics & Gynecology
DX: Z12.31 Encounter for screening mammogram for malignant neoplasm of breast (principal)
CPT/HCPCS: 77063; 77067

== ENCOUNTER 2023-12-23 07:43 | Outpatient (CLI) | payer OTHER, SELFPAY ==
--- NOTE | ~2023-12-23 | DEXA_ITS ---
Bone Density Report Name: VARGAS BRAVO Age: 63 Sex: Female Ethnicity: White Date of : 1960 Indication: postmenopausal; screening for osteoporosis; height loss; Referring Provider: GAGAN SEAMAN Study: Bone densitometry was performed. Exam Date: December 23, 2023 Accession number: [id number] Bone Density: Region BMD T-score Z-score Classification AP Spine(L1-L4) 1.091 0.4 2.0 Normal Femoral Neck (Left) 0.726 -1.1 0.3 Osteopenia Total Hip (Left) 0.957 0.1 1.2 Normal Femoral Neck (Right) 0.727 -1.1 0.3 Osteopenia Total Hip (Right) 0.895 -0.4 0.7 Normal Total Hip Mean 0.926 -0.2 1.0 Normal World Health Organization criteria for BMD impression classify patients as: Normal (T-score at or above -1.0), Osteopenia (T-score between -1.0 and -2.5), or Osteoporosis (T-score at or below -2.5). 10-year Fracture Risk(1): Major Osteoporotic Fracture 7.4% Hip Fracture 0.5% Reported Risk Factors: [place] (), Neck BMD=0.726, BMI=33.7 (1) FRAX(R) Version 3.08. Fracture probability calculated for an untreated patient. Fracture probability may be lower if the patient has received treatment. Clinical Information Provided by Patient: Has used the following medications: Vitamin D, Calcium Patient maximum height was 66.0 Menopause Age: 52 No regular weight bearing exercise Drinks caffeinated beverages Onset of menses at age 10 Number of children 2 Impression: The patient has low bone mass, based on the Left Femoral Neck T-score. The patient has an estimated ten-year risk of hip fracture of 0.5% and an estimated ten-year risk of major fracture of 7.4%, based on the WHO FRAX algorithm. Discussion: BONE DENSITY IS LOW AT ONE OR MORE SKELETAL SITES. This patient's lowest T-score is low at one or more skeletal sites. It meets the World Health Organization's (WHO) criteria for ?low bone mass? (T-score between -1.0 and -2.5). The patient's 10-year risk of fracture as calculated by FRAX is less than the threshold where pharmacological therapy is recommended by the National Osteoporosis Foundation (NOF). However, all treatment decisions require clinical judgment and consideration of individual patient factors, including patient preferences, comorbidities, previous drug use, risk factors not captured in the FRAX model (e.g., frailty, falls, vitamin D deficiency, increased bone turnover, interval significant decline in bone density) and possible under or overestimation of fracture risk by FRAX. The patient should follow a healthful lifestyle (good nutrition with adequate calcium and vitamin D, and appropriate weight-bearing exercise). Follow-Up: Consider repeating this study in 2 to 3 years to reassess this patient's status, or sooner if there is some new clinical indication.
== END 2023-12-23 07:44 | disposition home or self-care (01) ==
LOC: ANHIMG 07:45
PROVIDERS: PCP Family Medicine; Visit Provider Family Medicine
DX: Z78.0 Asymptomatic menopausal state (principal); M85.852 Other specified disorders of bone density and structure, left thigh; M85.851 Other specified disorders of bone density and structure, right thigh
CPT/HCPCS: 77080

== ENCOUNTER 2023-12-27 10:16 | Outpatient (CLI) | payer OTHER, SELFPAY ==
--- NOTE | ~2023-12-27 | US_ITS ---
EXAMINATION: US soft tissue head and neck DATE: 12/27/2023 11:20 INDICATION: Other specified symptoms and signs. Left neck tenderness. TECHNIQUE: Multiple grayscale and Doppler ultrasound images of the head and neck were obtained. COMPARISON: None FINDINGS: The submandibular glands are normal. There are normal lymph nodes in the neck. IMPRESSION: 1. No abnormal neck mass or lymphadenopathy. Reviewed, dictated and finalized at location E. K HANDLER
== END 2023-12-27 10:17 | disposition home or self-care (01) ==
LOC: ANHIMG 10:16
PROVIDERS: PCP Family Medicine; Visit Provider Family Medicine
DX: R09.89 Other specified symptoms and signs involving the circulatory and respiratory systems (principal)
CPT/HCPCS: 76536

== ENCOUNTER 2024-05-31 10:42 | Emergency (ER) | payer OTHER, SELFPAY ==
--- NOTE | ~2024-05-31 | XR_ITS ---
XR knee RT min 4V Ordering provider: SACHI Luis History: . Rt knee pain, twisted yesterday. Medial pain . Comparison: September 24, 2022 FINDINGS: BONES: No acute fracture or dislocation. JOINT SPACES: Narrowing of the medial and lateral compartment. SOFT TISSUES: Normal. IMPRESSION: No acute osseous abnormality right knee. Mild to moderate osteoarthritic changes. Reviewed, dictated and finalized at location A.
--- NOTE | 2024-05-31 11:13 | ED.LOWEXIN ---
HPI - Extremity Injury (Lower) General Chief Complaint: Extremity Injury, Lower Stated Complaint: Right Knee Pain Time Seen by Provider: 05/31/24 11:06 Source: patient and RN notes reviewed Mode of arrival: ambulatory Limitations: no limitations History of Present Illness HPI Narrative: Patient presents today complaining of right medial knee pain. Reports she twisted day yesterday. Reports she was able to get through the day normally, but last night she tried to straighten her leg out fully which caused increased pain. Denies numbness or tingling. Currently rates her pain 8/10 and has tried no [id number] treatment prior to arrival. History of meniscus surgery on the affected knee in the past by Dr. Parker. Related Data Home Medications Medication Instructions Recorded Confirmed cholecalciferol (vitamin D3) 50 50 mcg PO DAILY 08/10/22 05/31/24 mcg (2,000 unit) tablet (Vitamin D3) fluticasone propionate 50 2 spray intranasal DAILY PRN 12/13/23 05/31/24 mcg/actuation nasal allergies spray,suspension (Flonase Allergy Relief) Allergies Allergy/AdvReac Type Severity Reaction Status Date / Time No Known Allergies Allergy Verified 05/31/24 10:55 Review of Systems Review of Systems: CONSTITUTIONAL: Denies body aches, fever, chills, or sweats. EYES: Denies visual changes, redness, or discharge. ENT: Denies rhinorrhea, congestion, sore throat, or otalgia. CARDIOVASCULAR: Denies chest pain, palpitations, or edema. RESPIRATORY: Denies cough or dyspnea. GASTROINTESTINAL: Denies abdominal pain, nausea, vomiting, or diarrhea. GENITOURINARY: Denies dysuria or hematuria. SKIN: Denies rash, itching, or wounds. MUSCULOSKELETAL: Denies back pain, or myalgia.+ right knee pain NEUROLOGIC: Denies headache, numbness, tingling, or weakness. PSYCH: Denies depression or anxiety. [facility] Past Medical History Medical History Acute meniscal tear, medial Anxiety Dyslipidemia History of thyroid nodule s/p - left thyroidectomy 07/2017 Restless leg syndrome Seasonal allergies Vitamin D deficiency Surgical History Surgical History History of medial meniscus repair of right knee (~08/2022) History of partial thyroidectomy 07/2017 - excision of thyroid mass - benign Hx of tonsillectomy (~1965) Family History Family History Father Cerebrovascular accident Mother Stomach cancer Other Depression Social History Social History Smoking status: Never smoker Second hand tobacco smoke exposure: No Alcohol intake: never Drinks per week: 1 Alcohol use details: consumes 1 glass of wine socially Substance use: never Substance use type: does not use Lack of Transportation: No Lack of Food: Never True Current Housing: I Have Housing Concerned About Future Housing: No Difficulty Paying Gas/Electric Bills: No Difficulty Paying for Meds: No Currently Unemployed: No Education: High School Diploma/GED Living arrangements: with family Occupation/Education: occupation Gender identity (if verbalized by the patient): Female Spiritual care concerns: No Comments At time of signature, I have reviewed and agree with nursing past medical, surgical, social and family history unless otherwise noted. Please see nursing chart for further information. There is no relevant family history pertinent to the presenting complaint Exam Narrative: GENERAL: Well-appearing, well-nourished, and in no acute distress. HEAD: Normocephalic, atraumatic. EYES: EOMI. No redness or drainage. Conjunctivae normal. ENT: Mucous membranes pink and moist. NECK: Normal AROM. CHEST: No respiratory distress. EXTREMITIES: Right knee: Tenderness to the medial joint
[2024-05-31 11:15] VITALS: BP 140/89; PULSE 102; RESP 16; TEMP 36.4; O2SAT 99
== END 2024-05-31 12:11 | disposition home or self-care (01) ==
PROVIDERS: Emergency Provider Nurse Practitioner; PCP Family Medicine
DX: S89.91XA Unspecified injury of right lower leg, initial encounter (principal); X50.9XXA Other and unspecified overexertion or strenuous movements or postures, initial encounter; E78.5 Hyperlipidemia, unspecified; G25.81 Restless legs syndrome; E55.9 Vitamin D deficiency, unspecified; Z90.89 Acquired absence of other organs
CPT/HCPCS: 73564; 99213; G0463

== ENCOUNTER 2024-10-15 08:26 | Emergency (ER) | payer OTHER, SELFPAY ==
--- NOTE | 2024-10-15 08:28 | ED_ITS ---
HPI - Wound/Laceration General Chief Complaint: Wound/Laceration Stated Complaint: Cut Upper Lip Time Seen by Provider: 10/15/24 08:28 Source: patient Mode of arrival: ambulatory Limitations: no limitations History of Present Illness HPI narrative: Asya is a 63-year-old female patient presenting to the clinic today with complaints of a laceration to her upper external and internal lip as well as bruising to the right cheek. She reports she fell down steps this morning around 3:30 a.m. at her daughter's house. She reports that she has not used to walking around in the dark at her daughter's house and tripped on the steps. She denies any loss of consciousness or neck pain. She denies any back pain. Has a 1 cm laceration to the external and internal upper lip. Has bruising with mild cheek and lower orbit swelling. No tenderness around the eye. No visual changes. No obvious eye trauma. Related Data Home Medications Medication Instructions Recorded Confirmed cholecalciferol (vitamin D3) 50 50 mcg PO DAILY 08/10/22 10/15/24 mcg (2,000 unit) tablet (Vitamin D3) fluticasone propionate 50 2 spray intranasal DAILY PRN 12/13/23 10/15/24 mcg/actuation nasal allergies spray,suspension (Flonase Allergy Relief) Allergies Allergy/AdvReac Type Severity Reaction Status Date / Time No Known Allergies Allergy Verified 10/15/24 08:39 Review of Systems Review of Systems: Pertinent positives per HPI. Patient denies any fever, chills, rash, headache, visual changes, dizziness, cough, runny nose, sore throat, shortness of breath, chest pain, palpitations, nausea, vomiting, diarrhea, constipation, abdominal pain, or any urinary issues. [facility] Past Medical History Medical History Acute meniscal tear, medial Anxiety Dyslipidemia History of thyroid nodule s/p - left thyroidectomy 07/2017 Restless leg syndrome Seasonal allergies Vitamin D deficiency Surgical History Surgical History History of medial meniscus repair of right knee (~08/2022) History of partial thyroidectomy 07/2017 - excision of thyroid mass - benign Hx of tonsillectomy (~1964) Family History Family History Father Cerebrovascular accident Mother Stomach cancer Other Depression Social History Social History Smoking status: Never smoker Second hand tobacco smoke exposure: No Alcohol intake: never Drinks per week: 1 Alcohol use details: consumes 1 glass of wine socially Substance use: never Substance use type: does not use Lack of Transportation: No Lack of Food: Never True Current Housing: I Have Housing Concerned About Future Housing: No Difficulty Paying Gas/Electric Bills: No Difficulty Paying for Meds: No Currently Unemployed: No Education: High School Diploma/GED Living arrangements: with family Occupation/Education: occupation Gender identity (if verbalized by the patient): Female Spiritual care concerns: No Comments At the time of my signature, I reviewed and agree with the nursing past medical, surgical, social, and family history. There is no relevant family history pertinent to the patient complaint. Exam Narrative: General: Well-developed, well nourished, in no apparent distress Head: Normocephalic, atraumatic. Cardio: Regular rate and rhythm, s1 and s2 normal, no murmur appreciated. Resp: Clear to auscultation bilaterally, no rhonchi, rales, wheezing or rubs. Integumentary: [place], warm, and dry, intact without lesion, 1 cm superficial laceration to the upper right mid external lip and a 1 cm superficial laceration to the internal right lip. Bruising and swelling noted to the right cheek without tenderness to palpation, no step-off deformity, no tenderness to pal pation or step-off deformity to the right orbit. No obvious eye trauma-tearing, or bleeding Course Course Emergency Course: Portions of this record may have been created with voice recognition software. Level of Care: Express Care Visit Vital Signs Vital signs: Vital Signs Temperature 36.3 C L 10/15/24 08:38 Pulse Rate 123 H 10/15/24 08:38 Respiratory Rate 15 10/15/24 08:38 Blood Pressure 141/88 H 10/15/24 08:38 Pulse Oximetry 100 10/15/24 08:38 Oxygen Delivery Room Air 10/15/24 08:38 Temperature 36.3 C L 10/15/24 08:38 Pulse Rate 123 H 10/15/24 08:38 Respiratory Rate 15 10/15/24 08:38 Blood Pressure 141/88 H 10/15/24 08:38 Pulse Oximetry 100 10/15/24 08:38 Oxygen Delivery Room Air 10/15/24 08:38 Vital signs reviewed MDM - Wound/Laceration MDM Narrative Medical decision making narrative: At the time of visit patient is resting comfortably on the exam table. Patient appears to be nontoxic. Procedures: External lip laceration closed using skin adhesive glue. Wound was cleansed with antiseptic wound wash and patted dry Will leave the internal lip laceration open as it is superficial and give the patient prescription for Augmentin and chlorhexidine mouth rinse. Plan: Patient has a 1 cm superficial internal and external right upper mid lip laceration does not cross the vermilion border. The laceration is not a through and through. External lip laceration closed after cleansing using skin glue. Patient tolerated well. Will leave the internal lip laceration open is it is superficial and prescription for Augmentin and chlorhexidine mouthwash was sent to the pharmacy. Tetanus shot was updated in the clinic today. She has bruising to the right cheek and bruising and swelling near the right inferior orbit. No step-off deformity or tenderness to palpation however I did offer a facial bone x-ray and the patient declined at this time. Supportive measures were discussed with the patient and they voiced understanding discharge instructions and agrees to treatment plan. Return precautions reviewed Differential Diagnosis Differential diagnosis: Likely laceration, abscess, abrasion and avulsion of skin Discharge Plan Discharge Clinical Impression: Contusion of right cheek, Laceration of lip Patient Disposition: Home, Self-Care Condition: Stable Instructions: Antibiotic Form, Facial Laceration (ED), Contusion in Adults (ED) Additional Instructions: Tdap was given in the clinic today. May apply ice pack to the right cheek-20 minutes on 20 minutes off for the next 24 hours May take Tylenol for the next 24 hours as needed for pain External Lip laceration was closed using skin glue Internal lip laceration left open to heal-rinse Complete chlorhexidine gluconate mouthwash 2-3 times per day-best after meals Take Augmentin as prescribed Keep wound clean and dry Do not scrub, pick, or peel off skin glue Watch for signs and symptoms of infection- redness, streaking, swelling, purulent discharge, or increase in pain. Follow up with your PCP in 2-3 days for wound check Prescriptions: New chlorhexidine gluconate 0.12 % mouthwash 15 ml mucous membrane BID 7 Days Qty: 300 0RF amoxicillin-pot clavulanate 875-125 mg tablet 1 tablet PO Q12H 7 Days Qty: 14 0RF No Action fluticasone propionate [Flonase Allergy Relief] 50 mcg/actuation spray ,suspension 2 spray intranasal DAILY PRN (Reason: allergies) Rx Instructions: administer into each nostril tramadol 50 mg tablet 50 mg PO DAILY PRN (Reason: pain) Qty: 7 0RF cholecalciferol (vitamin D3) [Vitamin D3] 50 mcg (2,000 unit) Tablet 50 mcg PO DAILY carbamazepine 200 mg tablet extended release 12 hr 200 mg PO BID Qty: 180 1RF Patient Comments: per patient takes due to history of trigeminal neuralgia sertraline [Zoloft] 50 mg tablet 50 mg PO DAILY Qty: 90 1RF Patient Comments: pt takes for anixety Follow-up/Referrals: Jatinder Read MD [Primary Care Provider] - Time of Disposition: 08:51 Quality NIHSS Nursing Documentation ED NIHSS nursing documentation: reviewed/agree
[2024-10-15 08:38] VITALS: BP 141/88; PULSE 123; RESP 15; TEMP 36.3; O2SAT 100
[2024-10-15] MEDS: TETANUS,DIPHTHERIA,AC PERTUSSIS ADULT (0.5 ML) BOOSTRIX IM (08:48)
[2024-10-15 08:57] VITALS: PULSE 105
== END 2024-10-15 08:53 | disposition home or self-care (01) ==
PROVIDERS: Emergency Provider Nurse Practitioner Family; PCP Family Medicine
DX: S01.511A Laceration without foreign body of lip, initial encounter (principal); W10.9XXA Fall (on) (from) unspecified stairs and steps, initial encounter; Z23 Encounter for immunization; E78.5 Hyperlipidemia, unspecified; G25.81 Restless legs syndrome; Z90.89 Acquired absence of other organs
CPT/HCPCS: 12011; 90471; 90715; 99213; G0463

== ENCOUNTER 2025-03-12 08:47 | Outpatient (CLI) | payer OTHER, SELFPAY ==
--- NOTE | ~2025-03-12 | MM_ITS ---
EXAMINATION: MM screening matt BI w enoc HISTORY: Screening TECHNIQUE: Craniocaudal and mediolateral oblique 3-D tomosynthesis images were obtained and synthetic 2-D images were generated. CAD analysis was submitted and interpreted. COMPARISON: Comparison to multiple prior studies sequentially, with oldest reviewed study dated 08/07. BREAST PARENCHYMAL COMPOSITION: Not dense: There are scattered areas of fibroglandular density. FINDINGS: There is no evidence of suspicious mass, calcification, or architectural distortion to sugg est malignancy in either breast. There has been no suspicious interval change. IMPRESSION: 1. No mammographic evidence of malignancy. 2. Recommend routine screening mammography in one year. BI-RADS Category 1: Negative Reviewed, dictated and finalized at location A.
--- OUTSIDE RECORDS SUMMARY | 2025-03-12 09:09 | XMS_ITS | Clinical Summary ---
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 Gender Identity Not on file Sexual Orientation Not on file Plan of Treatment Health Maintenance Due Date Last Done Comments Hepatitis C Virus (HCV) Screening 1960 Pap Smear 1981 Cervical Cancer Screening (CCS) 1990 HPV/Cotest 1990 Colonoscopy 2005 Colorectal Cancer Screening 2005 Cologuard 2010 Immunochemical Fecal Occult Blood 2010 Mammogram 2010 Pneumococcal Immunization (5 0+ years) (1 of 1 - PCV) 2010 Zoster Immunization (1 of 2) 2010 Influenza Immunization (#1) 07/08/202408/08, 11/20/2017, 11/10/2017 SARS-COV-2 Immunization (2023- season) 2024 Respiratory Syncytial Virus (RSV) Immunization (Adult) (1 - 1-dose 75+ series) 2035 DTaP/Tdap/Td Immunization Discontinued 12/10/2017 TdaP Immunization Completed 12/10/2017 Hepatitis B Immunization Aged Out No longer eligible based on patient's age to complete this topic Meningococcal Immunization (ACWY) Aged Out No longer eligible based on patient's age to complete this topic Pneumococcal Immunization Combined Aged Out No longer eligible based on patient's age to complete this topic Rotavirus Immunization Aged Out No lo nger eligible based on patient's age to complete this topic
--- OUTSIDE RECORDS SUMMARY | 2025-03-12 09:09 | XMS_ITS | Clinical Summary ---
Author Organization [facility] Address [address] [place] [address] Care Team Providers Care Community Service Officer Name Role Phone Micheal Wheeler MD Primary Care Provider [phone] Source Comments [facility],non-[facility] Affiliates and Associated Physician Practices is amultiple site organization consisting of ambulatory clinics and hospital sitesin [place], [place], [place] and [place]. This disclosure is being madepursuant to the Care Everywhere program and may not contain all information available regarding this patient. 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 Gender Identity Not on file Sexual Orientation Not on file Last Filed Vital Signs Vital Sign Reading Time Taken Comments Blood Pressure 125/82 10/07/2015 10:37 AM MULTIMEDIA JOURNALIST Pulse 79 10/07/2015 10:37 AM MULTIMEDIA JOURNALIST Temperature - - Respiratory Rate - - Oxygen Saturation 98% 10/07/2015 10:37 AM MULTIMEDIA JOURNALIST Inhaled Oxygen Concentration - - Weight 88.5 kg (195 lb) 10/07/2015 7:18 AM MULTIMEDIA JOURNALIST Height 167.6 cm (5' 6 ) 10/07/2015 7:18 AM MULTIMEDIA JOURNALIST Body Mass Index 31.47 10/07/2015 7:18 AM MULTIMEDIA JOURNALIST Plan of Treatment Health Maintenance Due Date Last Done Comments COLOGUARD (AGES 45-75) - COL ON CA SCREENING 1960 COLON MONITORING 1960 COLONOSCOPY - COLON CA SCREENING 1960 CT COLONOGRAPHY - COLON CA SCREENING 1960 Colorectal Cancer Screening 1960 FIT - COLON CA SCREENING 1960 FLEX SIG - COLON CA SCREENING 1960 LIPID TESTING 1960 MAMMOGRAM 1960 HIV SCREENING 1975 HEPATITIS C SCREENING 11/20/1978 DTAP/TDAP/TD VACCINES (1 - Tdap) 1979 PNEUMOCOCCAL VACCINE 50+ (1 of 1 - PCV) 2010 ZOSTER VACCINE (1 of 2) 2010 COVID-19 VACCINE (1 - 2023-2 5 season) 2024 DEPRESSION SCREENING 11/07/2024 INFLUENZA VACCINE (Season Ended) 2025 Respiratory Syncytial Virus (RSV) Vaccine Pt: or over 60 yrs (1 - 1-dose 75+ series) 2035 HEPATITIS B VACCINE Aged Out No longe r eligible based on patient's age to complete this topic HIB VACCINE Aged Out No longer eligi ble based on patient's age to complete this topic HPV VACCINE Aged Out No longer eligi ble based on patient's age to complete this topic MENINGOCOCCAL (Group B) VACC INE SHARED DECISION-MAKING Aged Out No longer eligibl e based on patient's age to complete this topic MENINGOCOCCAL GROUPS A/C/Y/W VACCINE Aged Out No longer eligible b ased on patient's age to complete this topic Care Teams Community Service Officer Relationship Specialty Start Date End Date Micheal Wheeler MD [address] [place] [address] PCP - General 08/29/15
== END 2025-03-12 08:48 | disposition home or self-care (01) ==
PROVIDERS: PCP Family Medicine; Visit Provider Obstetrics & Gynecology
DX: Z12.31 Encounter for screening mammogram for malignant neoplasm of breast (principal)
CPT/HCPCS: 77063; 77067